=== PATIENT | female | born 1980 | race Caucasian/White ===

== ENCOUNTER → 2016-12-18 | Outpatient (CLI) | payer OTHER ==
[~2016-12-18] MED LIST: BORIC ACID VG; GENTLE EXPRESSI1 CRE; LEXAPRO20 MG PO; MICROGESTIN 1/21 TAB PO; MOTRIN 800800 MG/TAB PO; PERCOCET 325 MG1 TA2 PO; PRENATAL1 TA1 PO; PRENATAL1 TA6 PO; PROBIOTIC FORMU1 CAP PO; SENOKOT S 50 MG1 TAB PO; SYNTHROID0.05 MG/TA PO
== END ==
LOC: BHSO 08:50
DX: F41.1 Generalized anxiety disorder (principal)

== ENCOUNTER → 2017-02-26 | Outpatient (CLI) | payer OTHER | LOC: BHSO 08:58 | DX: F41.1 Generalized anxiety disorder (principal) ==

== ENCOUNTER → 2017-04-09 | Outpatient (CLI) | payer OTHER | LOC: BHSO 16:16 | DX: F41.1 Generalized anxiety disorder (principal) ==

== ENCOUNTER → 2017-05-28 | Outpatient (CLI) | payer OTHER | LOC: BHSO 09:56 | DX: F41.1 Generalized anxiety disorder (principal) ==

== ENCOUNTER → 2017-07-16 | Outpatient (CLI) | payer OTHER | LOC: BHSO 15:37 | DX: F33.1 Major depressive disorder, recurrent, moderate (principal) ==

== ENCOUNTER → 2017-08-27 | Outpatient (CLI) | payer OTHER | LOC: BHSO 08:58 | DX: F41.1 Generalized anxiety disorder (principal) ==

== ENCOUNTER → 2018-02-18 | Outpatient (CLI) | payer OTHER | LOC: BHSO 09:57 | DX: F41.1 Generalized anxiety disorder (principal) | CPT/HCPCS: G0463 ==

== ENCOUNTER → 2018-02-23 | Outpatient (CLI) | payer OTHER | LOC: COL.RAD 10:13 | DX: R20.2 Paresthesia of skin (principal); R41.840 Attention and concentration deficit; R53.83 Other fatigue; R68.89 Other general symptoms and signs ==

== ENCOUNTER → 2018-03-16 | Outpatient (CLI) | payer OTHER | LOC: BHSO 14:22 | DX: F41.1 Generalized anxiety disorder (principal) | CPT/HCPCS: G0463 ==

== ENCOUNTER 2018-03-25 09:10 | Day surgery (SDC) | payer OTHER ==
[~2018-03-25] VITALS: Ht 165.1 cm; Wt 74.4 kg
[~2018-03-25 09:10] MED LIST changes: +PRENATAL FORMU1 EAC3 PO; -PRENATAL1 TA6 PO
[2018-03-25] MEDS ORDERED: SYNTHROID0.075 MG/T PO (09:31)
[2018-03-25] MEDS ORDERED: ZYRTEC 10MG10 MG PO (09:31)
[2018-03-25] MEDS ORDERED: WELLBUTRIN XL300 M1 PO (09:31)
[2018-03-25] MEDS ORDERED: LO LOESTRIN FE1 TAB PO (09:32)
[2018-03-25] MEDS ORDERED: NEXIUM 40MG40 MG PO (09:32)
[2018-03-25] MEDS ORDERED: SINGULAIR 110 MG/TAB PO (09:33)
[2018-03-25] MEDS ORDERED: SLOW FE142 MG PO (09:33)
[2018-03-25] MEDS ORDERED: DESYREL 50MG50 MG PO (09:33)
[2018-03-25 09:34] VITALS: BP 112/91; PULSE 65; TEMP 97.6
[2018-03-25 10:50] VITALS: BP 110/70; PULSE 77
[2018-03-25 11:05] VITALS: BP 97/77; PULSE 60
[2018-03-25 11:20] VITALS: BP 112/78; PULSE 58
== END 2018-03-25 11:30 | disposition home or self-care (01) ==
LOC: SDCO 09:10
DX: K21.0 Gastro-esophageal reflux disease with esophagitis (principal); K59.00 Constipation, unspecified; D64.9 Anemia, unspecified; F32.9 Major depressive disorder, single episode, unspecified; Z90.49 Acquired absence of other specified parts of digestive tract; Z87.891 Personal history of nicotine dependence
CPT/HCPCS: J2250; J3010

== ENCOUNTER → 2018-06-17 | Outpatient (CLI) | payer OTHER ==
[~2018-06-17] MED LIST changes: +DESYREL 50MG50 MG PO; +LO LOESTRIN FE1 TAB PO; +NEXIUM 40MG40 MG PO; +SINGULAIR 110 MG/TAB PO; +SLOW FE142 MG PO; +SYNTHROID0.075 MG/T PO; +WELLBUTRIN XL300 M1 PO; +ZYRTEC 10MG10 MG PO
== END ==
LOC: BHSO 16:05
DX: F33.41 Major depressive disorder, recurrent, in partial remission (principal)
CPT/HCPCS: G0463

== ENCOUNTER → 2018-07-01 | Outpatient (CLI) | payer OTHER | LOC: BHSO 16:11 | DX: F33.41 Major depressive disorder, recurrent, in partial remission (principal) | CPT/HCPCS: G0463 ==

== ENCOUNTER → 2018-07-29 | Outpatient (REF) | LOC: ZLAB.WCH 09:47 | DX: Z01.89 Encounter for other specified special examinations (principal) ==

== ENCOUNTER → 2018-08-19 | Outpatient (CLI) | payer OTHER | LOC: BHSO 15:09 | DX: F31.81 Bipolar II disorder (principal) | CPT/HCPCS: G0463 ==

== ENCOUNTER → 2018-09-16 | Outpatient (CLI) | payer OTHER | LOC: BHSO 10:31 | DX: F33.1 Major depressive disorder, recurrent, moderate (principal) | CPT/HCPCS: G0463 ==

== ENCOUNTER → 2018-12-20 | Outpatient (CLI) | payer OTHER | LOC: BHSO 11:14 | DX: F33.41 Major depressive disorder, recurrent, in partial remission (principal) | CPT/HCPCS: G0463 ==

== ENCOUNTER → 2019-02-14 | Outpatient (CLI) | payer OTHER | LOC: BHSO 16:05 | DX: F41.1 Generalized anxiety disorder (principal) | CPT/HCPCS: G0463 ==

== ENCOUNTER → 2019-06-09 | Outpatient (CLI) | payer OTHER | LOC: COL.RAD 07:16 | DX: M54.5 Low back pain (principal) ==

== ENCOUNTER 2019-08-11 21:23 | Emergency (ER) | payer OTHER ==
[~2019-08-11] VITALS: Ht 165.1 cm; Wt 77.3 kg
[2019-08-11 22:32] LABS: BASO # 0.1 (0.0-0.2); BASO % 0.6 % (0.0-2.0); EOS # 0.3 (0.0-0.7); EOS % 3.1 % (0-4.0); GRAN # 4.3 (1.4-6.5); GRAN % 44.8 % (42.2-75.2); HEMATOCRIT 37.5 % (37.0-47.0); HEMOGLOBIN 12.2 g/dl (12.5-16.0); LYMPH # 4.2 (1.2-3.4); LYMPH % 43.9 % (20.0-51.0); MEAN CELL VOLUME 92 fl (80.0-100.0); MEAN CORPUSCULAR HEMOGLOBIN 30 pg (27.0-31.0); MEAN CORPUSCULAR HGB CONC 33 g/dl (33.0-37.0); MEAN PLATELET VOLUME 9.9 fl (7.4-10.4); MONO # 0.7 (0.1-0.6); MONO % 7.3 % (1.7-9.3); PLATELET COUNT 292 K/mm3 (130-400); RED BLOOD COUNT 4.06 M/mm3 (4.10-5.30); REDCELL DISTRIBUTION WIDTH-CV 12.4 % (11.5-14.5)
[2019-08-11 22:36] LABS: COLLECTION METHOD CLEAN CATCH
[2019-08-11 22:43] LABS: MUCOUS Present /lpf; PH 6 (5-8); SQUAMOUS EPITHELIAL 0-2 /hpf; URINE APPEARANCE Clear; URINE BACTERIA None Seen /hpf; URINE BILIRUBIN Negative (NEGATIVE); URINE BLOOD 1+ (NEGATIVE); URINE COLOR Yellow; URINE GLUCOSE Negative (NEGATIVE); URINE KETONE Negative (NEGATIVE); URINE LEUKOCYTE ESTERASE Negative (NEGATIVE); URINE NITRATE Negative (NEGATIVE); URINE PROTEIN(semi-quant) Negative (NEGATIVE); URINE RBC 0-2 /hpf; URINE UROBILINOGEN Negative (NEGATIVE)
[2019-08-11 22:45] LABS: ALANINE AMINOTRANSFERASE 15 U/L (9-52); ALBUMIN 4.2 gm/dL (3.5-5.0); ALKALINE PHOSPHATASE 63 U/L (50-136); ANION GAP 10 mmol/L (7-16); AST,SGOT 29 U/L (15-37); BILIRUBIN,TOTAL 0.2 mg/dL (0.0-1.0); BLOOD UREA NITROGEN 12 mg/dL (7-17); CALCIUM 8.9 mg/dL (8.4-10.2); CARBON DIOXIDE 24 mmol/L (22-30); CHLORIDE 104 mmol/L (98-107); CREATININE, serum 0.87 (0.52-1.25); GLUCOSE 111 mg/dL (74-106); POTASSIUM 3.9 mmol/L (3.4-5.0); SODIUM 138 mmol/L (137-145); TOTAL PROTEIN 7.2 gm/dL (6.4-8.2)
[2019-08-11 22:58] LABS: TRICYCLIC ANTIDEPRESS URINE NEGATIVE
[2019-08-11 23:00] LABS: ACETAMINOPHEN < 10 ug/mL (10-30); ALCOHOL(ethanol),MEDICAL < 10 mg/dL; SALICYLATE < 1.0 mg/dL
[2019-08-12 07:15] VITALS: BP 127/79; PULSE 88; TEMP 97.6
== END 2019-08-12 08:15 ==
LOC: COL.ER 21:23
PROVIDERS: Emergency Medicine
DX: F32.9 Major depressive disorder, single episode, unspecified (principal); R45.851 Suicidal ideations; K58.9 Irritable bowel syndrome, unspecified

== ENCOUNTER → 2019-08-15 | Outpatient (CLI) | payer OTHER | LOC: BHSO 10:56 | DX: F31.81 Bipolar II disorder (principal) | CPT/HCPCS: G0463 ==

== ENCOUNTER → 2019-08-29 | Outpatient (CLI) | payer OTHER | LOC: BHSO 10:54 | DX: F31.81 Bipolar II disorder (principal) ==

== ENCOUNTER → 2019-08-31 | Outpatient (CLI) | payer OTHER | LOC: BHSO 10:26 | DX: F31.81 Bipolar II disorder (principal) | CPT/HCPCS: G0463 ==

== ENCOUNTER → 2019-09-08 | Outpatient (CLI) | payer OTHER | LOC: BHSO 09:42 | DX: F41.1 Generalized anxiety disorder (principal) ==

== ENCOUNTER → 2019-09-14 | Outpatient (CLI) | payer OTHER | LOC: BHSO 09:57 | DX: F31.81 Bipolar II disorder (principal) ==

== ENCOUNTER → 2019-09-21 | Outpatient (CLI) | payer OTHER | LOC: BHSO 10:12 | DX: F31.81 Bipolar II disorder (principal) ==

== ENCOUNTER → 2019-09-28 | Outpatient (CLI) | payer OTHER | LOC: BHSO 08:57 | DX: F33.1 Major depressive disorder, recurrent, moderate (principal) ==

== ENCOUNTER → 2019-10-18 | Outpatient (CLI) | payer OTHER | LOC: BHSO 08:41 | DX: F41.8 Other specified anxiety disorders (principal) ==

== ENCOUNTER → 2019-11-02 | Outpatient (CLI) | payer OTHER | LOC: BHSO 09:56 | DX: F41.1 Generalized anxiety disorder (principal) ==

== ENCOUNTER → 2019-11-03 | Outpatient (CLI) | payer OTHER | LOC: BHSO 09:57 | DX: F31.81 Bipolar II disorder (principal) | CPT/HCPCS: G0463 ==

== ENCOUNTER → 2019-11-30 | Outpatient (CLI) | payer OTHER | LOC: BHSO 09:53 | DX: F33.1 Major depressive disorder, recurrent, moderate (principal) ==

== ENCOUNTER → 2020-03-06 | Outpatient (CLI) | payer OTHER | LOC: BHSO 08:58 | DX: F33.1 Major depressive disorder, recurrent, moderate (principal) ==

== ENCOUNTER → 2020-03-14 | Outpatient (CLI) | payer OTHER | LOC: BHSO 10:00 | DX: F31.81 Bipolar II disorder (principal) | CPT/HCPCS: G0463 ==

== ENCOUNTER → 2020-03-19 | Outpatient (CLI) | payer OTHER | LOC: MC.RAD 02-16 11:15 | DX: Z12.31 Encounter for screening mammogram for malignant neoplasm of breast (principal) ==

== ENCOUNTER → 2020-04-03 | Outpatient (CLI) | payer OTHER | LOC: BHSO 08:58 | DX: F41.1 Generalized anxiety disorder (principal) ==

== ENCOUNTER → 2020-05-29 | Outpatient (CLI) | payer OTHER | LOC: BHSO 10:54 | DX: F41.1 Generalized anxiety disorder (principal) ==

== ENCOUNTER → 2020-06-12 | Outpatient (CLI) | payer OTHER | LOC: BHSO 11:00 | DX: F31.81 Bipolar II disorder (principal) ==

== ENCOUNTER → 2020-06-19 | Outpatient (CLI) | payer OTHER | LOC: BHSO 09:39 | DX: F31.81 Bipolar II disorder (principal) | CPT/HCPCS: G0463 ==

== ENCOUNTER → 2020-06-27 | Outpatient (CLI) | payer OTHER | LOC: BHSO 10:53 | DX: F31.81 Bipolar II disorder (principal) ==

== ENCOUNTER → 2020-07-11 | Outpatient (CLI) | payer OTHER | LOC: BHSO 10:49 | DX: F31.81 Bipolar II disorder (principal) ==

== ENCOUNTER → 2020-07-26 | Outpatient (CLI) | payer OTHER | LOC: BHSO 10:59 | DX: F31.81 Bipolar II disorder (principal) ==

== ENCOUNTER → 2020-08-23 | Outpatient (CLI) | payer OTHER | LOC: BHSO 10:50 | DX: F31.81 Bipolar II disorder (principal) ==

== ENCOUNTER → 2020-09-23 | Outpatient (CLI) | payer OTHER | LOC: BHSO 09:46 | DX: F31.81 Bipolar II disorder (principal) ==

== ENCOUNTER → 2022-02-19 | Outpatient (CLI) | payer OTHER | LOC: MC.RAD 14:09 | DX: Z12.31 Encounter for screening mammogram for malignant neoplasm of breast (principal) ==